=== PATIENT | female | born 1970 | race Caucasian/White ===

== ENCOUNTER 2024-03-11 01:21 | Day surgery (SDC) | payer BC, SELFPAY ==
[2024-03-09 16:25] VITALS: BMI 24.3
[2024-03-11 09:43] VITALS: BP 141/67; PULSE 72; RESP 18; TEMP 36.6; O2SAT 99
--- NOTE | 2024-03-11 09:45 | SUR.PREOP ---
Blood sugar per dexcom is 126
[2024-03-11] MEDS: LACTATED RINGERS 1,000 ML 150 ML IV CONT (09:57)
--- NOTE | 2024-03-11 10:47 | WPDANESEPPF ---
Anes - Initial Pre Proc Eval Procedure: Operation Date: 03/11/24 11:00 Proposed Procedures p Screening Colonoscopy - Erwin Harris MD Date/Time: 03/11/24 10:47 Surgeon: Erwin Harris MD Pre Op Diagnosis: Early satiety, abnormal wt. loss, abd. distension Patient Data Age: 53 Gender: F Height: 1.7 m Weight: 67.8 kg Last Vital Signs Temp 97.8 F 03/11/24 09:43 Pulse 72 03/11/24 09:43 Resp 18 03/11/24 09:43 BP 141/67 H 03/11/24 09:43 Pulse Ox 99 03/11/24 09:43 O2 Del Method Room Air 03/11/24 09:43 Allergies Allergy/AdvReac Type Severity Reaction Status Date / Time Sulfa (Sulfonamide Allergy Intermediate Rash Verified 03/11/24 09:42 Antibiotics) Home Medications Medication Instructions Recorded Confirmed Type aspirin 81 mg tablet,delayed 81 mg PO DAILY 03/01/24 03/09/24 History release (Adult Aspirin Regimen) atorvastatin 80 mg tablet 80 mg PO HS 03/01/24 03/09/24 History carvedilol 3.125 mg tablet 3.125 mg PO Q12H 03/01/24 03/09/24 History cholecalciferol (vitamin D3) 125 125 mcg PO DAILY 03/01/24 03/09/24 History mcg (5,000 unit) capsule empagliflozin 10 mg tablet 10 mg PO DAILY 03/01/24 03/09/24 History (Jardiance) insulin aspart U-100 100 unit/mL 1 sliding scale dose subcut 03/01/24 03/09/24 History (3 mL) subcutaneous pen (Novolog USEASDIRECTD FlexPen U-100 Insulin aspart) insulin glargine 100 unit/mL (3 10 unit subcut QPM 03/01/24 03/09/24 History mL) subcutaneous pen (Lantus Solostar U-100 Insulin) lamotrigine 200 mg tablet 200 mg PO DAILY 03/01/24 03/09/24 History levothyroxine 150 mcg tablet 150 mcg PO DAILY 03/01/24 03/09/24 History (Synthroid) lisinopril 20 1 tablet PO HS 07/15/24 07/23/24 History mg-hydrochlorothiazide 12.5 mg tablet metformin 1,000 mg tablet 1,000 mg PO BID 03/01/24 03/09/24 History lamotrigine 25 mg tablet 50 mg PO DAILY 03/09/24 03/09/24 History ondansetron 4 mg disintegrating 4 mg PO Q6H PRN Nausea #4 tabs 03/09/24 Rx tablet ondansetron 4 mg disintegrating 4 mg translingual Q8H PRN Nausea 03/09/24 03/09/24 History tablet Patient hx anesthesia problems: none Family hx anesthesia problems: none Results Review: All pre-operative results and documents have been reviewed as part of the pre-operative evaluation. [facility] Past Medical History Medical History (Updated 02/27/24 @ 11:45 by UNIQUE Lynn) ADD (attention deficit disorder) Bloating symptom CAD (coronary artery disease) Change in bowel habits Depression Diabetes mellitus Early satiety HTN (hypertension) Hypothyroidism Loose stools Nausea and vomiting PTSD (post-traumatic stress disorder) Rosacea Weight loss Social History Social History Smoking packs per day: 0.5 Smoking cigarettes per day: 10.0 Years smoked: 3 Smoking pack-years: 1.50 Smoking status: Former smoker Tobacco type: cigarettes Alcohol intake: current Substance use: current Substance use type: marijuana Other substance usage details: TAKES FOR NAUSEA IN AM Living arrangements: with family Spiritual care concerns: No Anes - Eval Final PreProcedure Day of Procedure 03/11/24 10:47 Patient weight: normal Heart: regular rate and rhythm Lungs: clear to auscultation Airway: Mallampati scale class II Neurological: alert and oriented Last oral intake: >/= 8 hours ASA classification: III Emergent: no Anesthetic plan: proceed Anesthesia type and monitoring: general GIVS and standard monitoring Results Review: All pre-operative results and documents have been reviewed as part of the pre-operative evaluation. Informed Consent: The patient's anesthetic plan and its attendant risks and benefits were discussed with the patient/family/POA. Questions were solicited and answers provided to the satisfaction of the patient/family/POA.
--- NOTE | 2024-03-11 10:58 | WPDHPUPDATE1 ---
History and Physical Update Update Date/Time: 03/11/24 10:58 History and Physical has been reviewed, including an updated exam of the patient. There are NO changes in the patient's condition. Risks, benefits, and alternatives have been discussed and questions answered. Patient agrees to proceed with procedure.
[2024-03-11 11:19] LABS: BEDSIDEPREGUCG Negative
[2024-03-11 11:20] VITALS: BP 112/58; PULSE 73; RESP 17; O2SAT 100
[2024-03-11 11:30] VITALS: BP 142/59; PULSE 70; RESP 19; O2SAT 100
[2024-03-11 11:40] VITALS: BP 147/62; PULSE 64; RESP 19; O2SAT 100
== END 2024-03-11 11:48 | disposition home or self-care (01) ==
PROVIDERS: Visit Provider Internal Medicine Gastroenterology
PROC: 0DJD8ZZ Inspection of Lower Intestinal Tract, Via Natural or Artificial Opening Endoscopic (ICD-10-PCS; CPT 45378; principal; 2024-03-11 11:00)
DX: D12.0 Benign neoplasm of cecum (principal); K57.30 Diverticulosis of large intestine without perforation or abscess without bleeding; K64.8 Other hemorrhoids; I25.10 Atherosclerotic heart disease of native coronary artery without angina pectoris; I10 Essential (primary) hypertension; E11.9 Type 2 diabetes mellitus without complications; E03.9 Hypothyroidism, unspecified; F98.8 Other specified behavioral and emotional disorders with onset usually occurring in childhood and adolescence; F43.10 Post-traumatic stress disorder, unspecified; F32.A Depression, unspecified; Z95.5 Presence of coronary angioplasty implant and graft; Q65.89 Other specified congenital deformities of hip; Z79.84 Long term (current) use of oral hypoglycemic drugs; Z79.82 Long term (current) use of aspirin; Z79.4 Long term (current) use of insulin; F12.90 Cannabis use, unspecified, uncomplicated; Z87.891 Personal history of nicotine dependence
CPT/HCPCS: 45385; 45380; 88305; J2001; J2704; J7120

== ENCOUNTER 2024-03-17 13:51 | Outpatient (CLI) | payer BC, SELFPAY ==
--- NOTE | ~2024-03-17 | CT_ITS ---
EXAMINATION: CT abdomen pelvis w con DATE: 03/17/2024 14:25 INDICATION: Right abdominal pain. Weight loss. TECHNIQUE: Computed tomography (CT) of the abdomen and pelvis was performed with 100 mL Omnipaque 350 intravenous contrast. Automated exposure control and iterative reconstruction technique were employe d. The dose-length product was 379.57 mGy-cm. COMPARISON: None. FINDINGS: The visualized portions of the lung bases demonstrate mild atelectasis. No pleural effusion . The heart size is normal. There are coronary artery calcifications. No pericardial effusion. The li mathieu and spleen are normal. There is a gallstone in the gallbladder, which is normal in size. The panc reas, adrenal glands, and right kidney are normal. There is cortical thinning of left kidney. There i s an intrauterine device in expected position. There is diverticulosis of the colon without evidence of diverticulitis. The appendix is normal. There are no dilated loops of bowel. There are no patholog ically enlarged lymph nodes. There is no free intraperitoneal fluid. There is a total left hip arthro plasty. There is moderate thoracic spondylosis and severe lumbar spondylosis. IMPRESSION: 1. Cholelithiasis. No evidence of acute cholecystitis. Reviewed, dictated and finalized at location A.
[2024-03-17 14:19] LABS: Estimated Glomerular Filt Rate > 60
== END 2024-03-17 13:52 | disposition home or self-care (01) ==
PROVIDERS: Visit Provider Nurse Practitioner
DX: R19.5 Other fecal abnormalities (principal); K80.20 Calculus of gallbladder without cholecystitis without obstruction
CPT/HCPCS: 74177; Q9967

== ENCOUNTER 2024-04-13 13:40 | Outpatient (CLI) | payer BC, SELFPAY ==
--- NOTE | ~2024-04-13 | US_ITS ---
EXAMINATION: US pelvic complete w TV DATE: 04/13/2024 14:30 INDICATION: Abdominal distention. TECHNIQUE: Multiple transabdominal and transvaginal sonographic images of the pelvis were obtained. COMPARISON: CT abdomen and pelvis 03/17/24 FINDINGS: TRANSABDOMINAL ULTRASOUND: The uterus measures 7.1 x 3.1 x 4.2 cm. There is no free fluid in the pelvis. TRANSVAGINAL ULTRASOUND: The endometrial complex measures 2 mm in thickness. There is an intrauterine device in expected posit ion. The right ovary measures 2.9 x 1.4 x 3.0 cm. The left ovary measures 1.7 x 1.1 x 1.5 cm. There i s normal vascular flow in the ovaries. IMPRESSION: 1. Intrauterine device in expected position. Reviewed, dictated and finalized at location A.
== END 2024-04-13 13:41 | disposition home or self-care (01) ==
PROVIDERS: Visit Provider Nurse Practitioner Family
DX: R14.0 Abdominal distension (gaseous) (principal); Z97.5 Presence of (intrauterine) contraceptive device
CPT/HCPCS: 76830; 76856

== ENCOUNTER 2024-06-15 09:06 | Outpatient (CLI) | payer BC, SELFPAY ==
--- NOTE | ~2024-06-15 | US_ITS ---
EXAMINATION: US right upper quadrant DATE: 06/15/2024 09:22 INDICATION: Cholelithiasis. TECHNIQUE: Multiple grayscale and Doppler ultrasound images of the abdomen were obtained. COMPARISON: CT abdomen and pelvis 03/17/2024 FINDINGS: The visualized portions of the head, body, and tail of the pancreas are normal. The liver i s normal without focal lesion. No liver surface nodularity. There is normal flow in main portal vein. The gallbladder is normal in size and contains a gallstone. No gallbladder wall thickening or sonogr aphic Means sign. The common duct is normal and measures 6 mm. IMPRESSION: 1. Cholelithiasis. No evidence of acute cholecystitis. Reviewed, dictated and finalized at location B.
== END 2024-06-15 09:07 | disposition home or self-care (01) ==
LOC: GOSHIMG 09:08
PROVIDERS: PCP Nurse Practitioner Family; Visit Provider Surgery
DX: K80.20 Calculus of gallbladder without cholecystitis without obstruction (principal)
CPT/HCPCS: 76705

== ENCOUNTER 2024-06-25 08:33 | Outpatient (CLI) | payer BC, SELFPAY ==
--- NOTE | ~2024-06-25 | NM_ITS ---
EXAMINATION: NM hepatobiliary w pharm DATE: 06/25/2024 12:53 ADVERTISING DIRECTOR INDICATION: Right upper quadrant pain COMPARISON: Ultrasound dated 06/15/2024 TECHNIQUE: 5 mCi Tc-99m mebrofenin (Choletec) was administered intravenously. Scintigraphic images o f the abdomen were obtained for one hour. At the 1 hour time point, [3 mcg sincalide (Kinevac) was ad ministered by slow intravenous infusion, and imaging was continued for 30 minutes. Gallbladder ejecti on fraction was calculated by the technologist.] FINDINGS: There is normal clearance of radiotracer from the blood pool. There is homogeneous tracer u ptake by the liver. Activity progresses to the gallbladder and bowel. Gallbladder ejection fraction is 53% (normal 10-90%, but most patient with gallbladder dysfunction have GBEF < 35%).] IMPRESSION: 1. Normal hepatobiliary scan. Reviewed, dictated and finalized at location B. RTISING DIRECTOR
== END 2024-06-25 08:34 | disposition home or self-care (01) ==
LOC: ANHIMG 08:35
PROVIDERS: PCP Nurse Practitioner Family; Visit Provider Surgery
DX: R10.11 Right upper quadrant pain (principal)
CPT/HCPCS: 78227; A9537; J2805